=== PATIENT | female | born 1935 | race Caucasian/White ===

== ENCOUNTER 2016-03-25 14:08 | Emergency (ER) | payer OTHER ==
[~2016-03-25] VITALS: Ht 152.4 cm; Wt 58.5 kg
--- NOTE | 2016-03-25 15:32 | PHYS DOC ---
Past Medical History Past Medical History: Anemia, CVA, Other Additional Past Medical Histor: BLOOD TRANSFUSION,GI BLEED,SYNCOPE,IRON DEFICIENCY ANEMIA Past Surgical History: Hysterectomy, Tonsillectomy Alcohol Use: None Drug Use: None Adult General Chief Complaint Chief Complaint: SHORTNESS OF BREATH HPI HPI Patient is a 80 year old female who presents with cold symptoms. Patient reports that she has had a cold over the past 2 weeks; she reports chest congestion and cough. She does not feel short of breath or have any chest discomfort. No fever. Patient went to an urgent care and was instructed to come to the emergency department. She has been taking mucinex for her symptoms with partial relief. Review of Systems Review of Systems Constitutional: Denies fever or chills Eyes: Denies change in visual acuity or eye pain HENT: Denies nasal congestion or sore throat Respiratory: Cough, chest congestion. Denies shortness of breath Cardiovascular: Denies chest pain GI: Denies abdominal pain, nausea, vomiting, bloody stools or diarrhea : Denies dysuria or hematuria Musculoskeletal: Denies back pain or joint pain Integument: Denies rash or skin lesions Neurologic: Denies headache, focal weakness or sensory changes Current Medications Current Medications Current Medications Medications (Trade) Dose Ordered Sig/Mikayla Start Time Stop Time Status Last Admin Dose Admin Guaifenesin (Robitussin) 200 mg 1X ONCE 03/25/16 15:45 03/25/16 15:46 DC 03/25/16 16:09 200 MG Allergies Allergies Allergies Coded Allergies Type Severity Reaction Last Updated Verified No Known Drug Allergies 12/07/15 No Physical Exam Physical Exam Constitutional: Well developed, well nourished, no acute distress, non-toxic appearance HENT: Normocephalic, atraumatic, bilateral external ears normal Eyes: EOMI, conjunctiva normal, no discharge Neck: Normal range of motion, no stridor Cardiovascular: Heart rate normal, regular rhythm, no murmur Lungs & Thorax: Coarse breath sounds more pronounced on R Abdomen: Bowel sounds normal, soft, non-distended, no TTP Skin: Warm, dry, no erythema, no rash Extremities: No obvious deformity, no edema Neurologic: Alert and oriented X 3, no gross deficits noted Current Patient Data Vital Signs Vital Signs Date Time Temp Pulse Resp B/P Pulse Ox O2 Delivery O2 Flow Rate FiO2 03/25/16 18:35 72 20 143/78 93 Room Air 03/25/16 14:23 97.9 97.9 Lab Values Laboratory Tests Test 03/25/16 16:07 03/25/16 16:50 03/25/16 17:13 White Blood Count 5.0x10^3/uL (4.0-11.0) Red Blood Count 3.92x10^6/uL (3.50-5.40) Hemoglobin 11.5g/dL (12.0-15.5) L Hematocrit 34.7% (36.0-47.0) L Mean Corpuscular Volume 89fL (79-100) Mean Corpuscular Hemoglobin 29pg (25-35) Mean Corpuscular Hemoglobin Concent 33g/dL (31-37) Red Cell Distribution Width 14.4% (11.5-14.5) Platelet Count 242x10^3/uL (140-400) Neutrophils (%) (Auto) 47% (31-73) Lymphocytes (%) (Auto) 43% (24-48) Monocytes (%) (Auto) 6% (0-9) Eosinophils (%) (Auto) 3% (0-3) Basophils (%) (Auto) 1% (0-3) Neutrophils # (Auto) 2.3x10^3uL (1.8-7.7) Lymphocytes # (Auto) 2.2x10^3/uL (1.0-4.8) Monocytes # (Auto) 0.3x10^3/uL (0.0-1.1) Eosinophils # (Auto) 0.1x10^3/uL (0.0-0.7) Basophils # (Auto) 0.1x10^3/uL (0.0-0.2) Influenza Type A Antigen Negative (NEGATIVE) Influenza Type B Antigen Negative (NEGATIVE) Sodium Level 142mmol/L (136-145) Potassium Level 3.7mmol/L (3.5-5.1) Chloride Level 107mmol/L (98-107) Carbon Dioxide Level 25mmol/L (21-32) Anion Gap 10 (6-14) Blood Urea Nitrogen 14mg/dL (7-20) Creatinine 0.9mg/dL (0.6-1.0) Estimated GFR (Cockcroft-Gault) 60.4 Glucose Level 84mg/dL (70-99) Calcium Level 8.4mg/dL (8.5-10.1) L Troponin I Quantitative < 0.017ng/mL (0.000-0.055) Laboratory Tests 03/25/16 16:07 Laboratory Tests 03/25/16 17:13 EKG EKG EKG (my read): sinus rhythm, rate 68, borderline LAD, intervals wnl, no acute ischemic changes Radiology/Procedures Radiology/Procedures CXR (my read): Hiatal hernia. No significant change from prior. Course & Med Decision Making Course & Med Decision Making Pertinent Labs and Imaging studies reviewed. (See chart for details) Patient is 80 year old female who presents with cough and chest congestion. No chest discomfort or shortness of breath. Suspect viral URI. However will screen for more serious pathology with EKG, chest x-ray, labs. Dose of guaifenesin ordered for assistance with expectoration. EKG okay per my read. Chest x-ray similar to prior. Labs unremarkable. Troponin wnl; given duration of symptoms this would be sufficient to rule out LA, although patient's symptoms not indicative of that anyway. Discussed results with patient, who strongly insists upon going home. I discussed the importance of close follow up with PCP as well as strict return precautions. Patient agreeable with plan. Will discharge home with instructions for follow up and return precautions. Dragon Disclaimer Dragon Disclaimer This electronic medical record was generated, in whole or in part, using a voice recognition dictation system. Departure Departure Impression: Primary Impression: Upper respiratory infection Disposition: HOME, SELF-CARE Condition: STABLE Referrals: NO PCP (PCP) Patient Instructions: Upper Respiratory Infection, Adult Additional Instructions: Thank you for allowing us to provide care today in the Emergency Department. Take the provided medication as directed. Schedule a follow up appointment with your primary care doctor. Return promptly to the Emergency Department if you develop any new or concerning symptoms, such as chest discomfort or shortness of breath. Scripts Guaifenesin 200 Mg [id number] Mg PO Q4-6HRS PRN CONGESTION #20 Prov:TRUDI SHAW MD 03/25/16 TRUDI SHAW MD Mar 25, 2016 15:32
[2016-03-25] MEDS ORDERED: GUAIFENESIN 200 MG/10 ML LIQUID. PO ONE (15:45)
[2016-03-25 16:18] LABS: BASO # 0.1 x10^3/uL (0.0-0.2); BASO % 1 % (0-3); EOS % 3 % (0-3); HEMATOCRIT 34.7 % (36.0-47.0); HEMOGLOBIN 11.5 g/dL (12.0-15.5); LYMPH # 2.2 x10^3/uL (1.0-4.8); LYMPH % 43 % (24-48); MEAN CORPUSCULAR HEMOGLOBIN 29 pg (25-35); MEAN CORPUSCULAR HGB CONC 33 g/dL (31-37); MEAN CORPUSCULAR VOLUME 89 fL (79-100); MONO % 6 % (0-9); NEUT % 47 % (31-73); PLATELET COUNT 242 x10^3/uL (140-400); RED BLOOD COUNT 3.92 x10^6/uL (3.50-5.40); RED CELL DISTRIBUTION WIDTH 14.4 % (11.5-14.5)
[2016-03-25 17:17] LABS: OBC FLU VALID
[2016-03-25 17:32] LABS: CALCIUM 8.4 mg/dL (8.5-10.1); CREATININE 0.9 mg/dL (0.6-1.0); GFR 60.4; POTASSIUM 3.7 mmol/L (3.5-5.1)
[2016-03-25] MEDS ORDERED: GUAI200T3 PO (18:05)
[2016-03-25 18:35] VITALS: BP 143/78
--- NOTE | 2016-03-25 19:38 | EKG ---
[facility] [address] [place] [address] Test Date: 2016-03-25 Test Time: 15:57:14 Pat Name: ROHITH ELLIOTT Department: Room: Gender: F Joggle [employer] Operator: : [id number] Requested By: TRUDI SHAW Order Number: [id number] Reading MD: Measurements Intervals [place] Rate: 68 P: 8 [place]: 154 QRS: 8 QRSD: 76 T: 5 QT: 402 QTc: 432 Interpretive Statements SINUS RHYTHM RI6.01 Unconfirmed report Compared to ECG 12/06/2015 16:23:22 No significant changes
--- NOTE | 2016-03-26 09:36 | RAD ---
PA and lateral chest. History: Cough, cough x1 week PA and lateral views were taken of the chest. There is a large hiatus hernia. Lungs are free of infiltrates. Heart is normal in size. There is no effusion. Impression: 1. Large hiatus hernia. 2. No acute infiltrates.
== END 2016-03-25 18:45 | disposition home or self-care (01) ==
LOC: ER 14:08
DX: J06.9 Acute upper respiratory infection, unspecified (principal); Z86.73 Personal history of transient ischemic attack (TIA), and cerebral infarction without residual deficits; Z90.89 Acquired absence of other organs
CPT/HCPCS: 36415; 71020; 80048; 84484; 85027; 87804; 93005; 99285-25

== ENCOUNTER → 2018-04-15 | Outpatient (CLI) | payer OTHER ==
[~2018-04-15] MED LIST: GUAI200T3 PO
--- NOTE | 2018-04-15 16:16 | KCIC ---
ELBOW LEFT 3V, HUMERUS LEFT Clinical Indication: Left elbow and arm pain post injury x1 month. Comparison: None. Findings: No acute fracture of the humerus. Narrowing of the acromiohumeral distance suggests chronic rotator cuff tear. No glenohumeral dislocation. Soft tissues unremarkable. No acute fracture or dislocation of the elbow. No elbow joint effusion. No soft tissue swelling is identified. IMPRESSION: No acute bone abnormality. Electronically signed by: Jose Luis Blunt MD (04/15/2018 4:12 PM) [id number]
== END | disposition home or self-care (01) ==
LOC: KCIC 15:29
PROVIDERS: ATTEND Nurse Practitioner Family
DX: M25.522 Pain in left elbow (principal); M79.622 Pain in left upper arm
CPT/HCPCS: 73060; 73080

== ENCOUNTER → 2018-06-05 | Outpatient (CLI) | payer OTHER ==
--- NOTE | 2018-06-06 14:17 | SLEEP ---
DATE OF STUDY: 06/05/2018 HOME SLEEP STUDY OBJECTIVE: The patient is an 82-year-old female with a known nocturnal hypoxia, confusion, excessive somnolence. Height 61 inches, weight 115 pounds, body mass index 21.7. [place] sleep score 8. INTERPRETATION: The apnea-hypopnea index is 20.6 events per hour of sleep, 11.2 obstructive apneas per hour of sleep. The minimum oxygen saturation is 65%. A recording of 205 beats per minute was made for cardiac rate, otherwise the mean heart rate of 73.4. Snoring occurs 24 times during the night. IMPRESSION: Abnormal home polysomnogram showing oxygen desaturation and obstructive sleep apnea and hypopnea. RECOMMENDATIONS: The patient will follow up in my office to discuss options for further treatment. The use of a CPAP machine may be problematic given her dementia and indeed she did take off the nasal cannula during this home sleep study during the night. Thank you for letting us to help with the patient's care. DEMETRIUS WILSON MD DR: SMITHA/jesse JOB#: [id number] / [id number] DEVORA Pat DO
== END | disposition home or self-care (01) ==
LOC: RT 08:23
PROVIDERS: ATTEND Psychiatry & Neurology Neurology with Special Qualifications in Child Neurology
DX: G47.33 Obstructive sleep apnea (adult) (pediatric) (principal); R09.02 Hypoxemia
CPT/HCPCS: G0399

== ENCOUNTER → 2018-06-10 | Outpatient (CLI) | payer OTHER ==
--- NOTE | 2018-06-10 10:08 | KCIC ---
PQRS Compliance Statement: One or more of the following individualized dose reduction techniques were utilized for this examination: 1. Automated exposure control 2. Adjustment of the mA and/or kV according to patient size 3. Use of iterative reconstruction technique CT head without contrast 06/10/2018 10:00 AM INDICATION: Dementia, memory loss COMPARISON: None available TECHNIQUE: Multiple axial CT images of the head were obtained from skull base through the vertex without intravenous contrast. FINDINGS: Head: Ventricles, sulci and basal cisterns are within normal limits. . There is a remote lacunar infarct involving the right thalamus. Low-attenuation in the periventricular white matter is suggestive of chronic small vessel ischemic changes. There is no hydrocephalus. Dailey-white matter differentiation is normal. There is no acute intracranial hemorrhage. There is no mass, mass effect or midline shift. Posterior fossa is normal in appearance. Visualized portions of the orbits are normal with exception of right lens replacement. Paranasal sinuses are well aerated. Mastoid air cells are well aerated. Scalp and calvaria are normal. IMPRESSION: No acute intracranial hemorrhage. There is a remote lacunar infarct involving the right thalamus. Low-attenuation in the periventricular white matter is suggestive of chronic small vessel ischemic changes. Electronically signed by: Xiao Wynn MD (06/10/2018 10:04 AM) [facility]KC[facility]1
== END | disposition home or self-care (01) ==
LOC: KCIC CT 09:31
PROVIDERS: ATTEND Psychiatry & Neurology Neurology with Special Qualifications in Child Neurology
DX: F03.90 Unspecified dementia, unspecified severity, without behavioral disturbance, psychotic disturbance, mood disturbance, and anxiety (principal)
CPT/HCPCS: 70450

== ENCOUNTER → 2018-07-09 | Outpatient (CLI) | payer OTHER ==
--- NOTE | 2018-07-09 10:16 | CARD ---
MR#: [id number] Date of Study: 07/09/2018 Ordering Physician: DEMETRIUS WILSON, Referring Physician: DEMETRIUS WILSON, Tech: Mara Cardozo [facility] APPROVED REPORT EXAM: Two-dimensional and M-mode echocardiogram with Doppler and color Doppler. Other Information Quality : AverageHR: 60bpm Rhythm : Other INDICATION Chest Pain 2D DIMENSIONS RVDd2.8 (2.9-3.5cm)Left Atrium(2D)3.9 (1.6-4.0cm) IVSd1.1 (0.7-1.1cm)Aortic Root(2D)2.7 (2.0-3.7cm) LVDd3.4 (3.9-5.9cm)LVOT Diameter2.0 (1.8-2.4cm) PWd0.8 (0.7-1.1cm)LVDs2.4 (2.5-4.0cm) FS (%) 30.0 %SV27.4 ml LVEF(%)58.4 (>50%) Aortic Valve AoV Peak Javier.120.2cm/sAoV VTI22.5cm AO Peak GR.5.8mmHgLVOT Peak Javier.81.5cm/s AO Mean GR.3mmHgAVA (VMAX)2.23cm2 DONTA (VTI)2.20cm2 Mitral Valve MV E Jowkkrrt35.6cm/sMV E Peak Gr.6mmHg MV DECEL [id number] A Zmmhwqrh173.8cm/s MV E Mean Gr.2mmHgE/A Ratio0.6 MV A [id number] Pulmonary Valve PV Peak Nrjqnivi79.4cm/s Tricuspid Valve TR P. Rrtxivou065ws/sRAP KUIZIFVR0pxAg TR Peak Gr.82cvPkFWDI86nnVd Pulmonary Vein S1 Bubslrml06.5cm/sD2 Ueocmgbs04.8cm/s PVa jvztsnzk44kpmr LEFT VENTRICLE The left ventricle is normal size. Proximal septal thickening is noted. The left ventricular systolic function is normal and the ejection fraction is within normal range. The Ejection Fraction is 55-60% . There is normal LV segmental wall motion. Transmitral Doppler flow pattern is Grade I-abnormal rela xation pattern. RIGHT VENTRICLE The right ventricle is normal size. There is normal right ventricular wall thickness. The right ventr icular systolic function is normal. ATRIA The left atrium is mildly dilated. The right atrium is mildly dilated. The interatrial septum is inta ct with no evidence for an atrial septal defect or patent foramen ovale as noted on 2-D or Doppler im aging. AORTIC VALVE The aortic valve is trileaflet. The aortic valve is mildly calcified. Doppler and Color Flow revealed trace aortic regurgitation. There is no significant aortic valvular stenosis. There is no aortic delonte vular vegetation. MITRAL VALVE Mitral annular calcification is mild to moderate. There is no evidence of mitral valve prolapse. Ther e is no mitral valve stenosis. Doppler and Color-flow revealed mild mitral regurgitation. TRICUSPID VALVE The tricuspid valve is normal in structure and function. Doppler and Color Flow revealed mild tricusp id regurgitation. The PA pressure was estimated at 31 mmHg. There is no tricuspid valve prolapse or v egetation. There is no tricuspid valve stenosis. PULMONIC VALVE Doppler and Color Flow revealed trace pulmonic valvular regurgitation. There is no pulmonic valvular stenosis. GREAT VESSELS The aortic root is normal in size. The ascending aorta is normal in size. The IVC is normal in size a nd collapses >50% with inspiration. PERICARDIAL EFFUSION There is no evidence of significant pericardial effusion. Critical Notification Critical Value: No <Conclusion> The left ventricular systolic function is normal and the ejection fraction is within normal range. Th e Ejection Fraction is 55-60%. There is normal LV segmental wall motion. Doppler and Color-flow revealed mild mitral regurgitation. Signed by : Charly Belle, Electronically Approved : 07/09/2018 10:16:13
== END | disposition home or self-care (01) ==
LOC: ECHO 08:58
PROVIDERS: ATTEND Psychiatry & Neurology Neurology with Special Qualifications in Child Neurology
DX: I08.3 Combined rheumatic disorders of mitral, aortic and tricuspid valves (principal)
CPT/HCPCS: 93306

== ENCOUNTER 2020-07-10 17:01 | Emergency (ER) | payer MEDICARE ==
[~2020-07-10] VITALS: Ht 149.9 cm; Wt 40.0 kg
[~2020-07-10 17:01] MED LIST changes: +CYAN-25 PO; +DICL100G54 TP; +METO25TA4 PO; +MIRT15TA3 PO; +OLAN5TAB99 PO; +no home meds
--- NOTE | 2020-07-10 17:30 | PHYS DOC ---
Past Medical History Past Medical History: Anemia, CVA, Dementia, Other Additional Past Medical Histor: BLOOD TRANSFUSION,GI BLEED,SYNCOPE,IRON DEFICIENCY ANEMIA (LOLI WELLINGTON MD) Past Surgical History: Hysterectomy, Tonsillectomy (LOLI WELLINGTON MD) Smoking Status: Former Smoker Alcohol Use: None Drug Use: None (LOLI WELLINGTON MD) Adult General Chief Complaint Chief Complaint: MECHANICAL FALL HPI HPI Patient is a 84 year old female with a known past medical history of dementia currently care home now presenting emergency department with concern for new onset of fall. Nonspecific report coming from the care home but the patient is accompanied by the daughter states that she knows the patient fell and struck her head and at some point thinks that she had syncopized and had "her eyes rolling back into her head.". Uncertain whether or not these events occurred prior to the fall or after. Patient is unable to provide any significant history secondary to acute altered mental status (LOLI WELLINGTON MD) Review of Systems Review of Systems Constitutional: Denies fever or chills [] Eyes: Denies change in visual acuity, redness, or eye pain [] HENT: Denies nasal congestion or sore throat [] Respiratory: Denies cough or shortness of breath [] Cardiovascular: No additional information not addressed in HPI [] GI: Denies abdominal pain, nausea, vomiting, bloody stools or diarrhea [] : Denies dysuria or hematuria [] Musculoskeletal: Denies back pain or joint pain [] Integument: Denies rash or skin lesions [] Neurologic: Denies headache, focal weakness or sensory changes [] Endocrine: Denies polyuria or polydipsia [] All other systems were reviewed and found to be within normal limits, except as documented in this note. (LOLI WELLINGTON MD) Current Medications Current Medications Current Medications Medications (Trade) Dose Ordered Sig/Mikayla Start Time Stop Time Status Last Admin Dose Admin Info (CONTRAST GIVEN -- Rx MONITORING) 1 each PRN DAILY PRN 07/10/20 19:30 07/12/20 19:29 Iohexol (Omnipaque 350 Mg/ml) 100 ml 1X ONCE 07/10/20 19:30 07/10/20 19:31 DC 07/10/20 19:40 100 ML (KEVIN HERMAN DO) Allergies Allergies Allergies Coded Allergies Type Severity Reaction Last Updated Verified No Known Drug Allergies 12/07/15 No [facility] Physical Exam Physical Exam Constitutional: Well developed, well nourished, no acute distress, non-toxic appearance. [] HENT: Normocephalic, atraumatic, bilateral external ears normal, oropharynx moist, no oral exudates, nose normal. [] Eyes: PERRLA, EOMI, conjunctiva normal, no discharge. [] Neck: Normal range of motion, no tenderness, supple, no stridor. [] Cardiovascular:Heart rate regular rhythm, no murmur [] Lungs & Thorax: Bilateral breath sounds clear to auscultation [] Abdomen: Bowel sounds normal, soft, no tenderness, no masses, no pulsatile masses. [] Skin: Warm, dry, no erythema, no rash. [] Back: No tenderness, no CVA tenderness. [] Extremities: No tenderness, no cyanosis, no clubbing, ROM intact, no edema. [] Neurologic: normal motor function, normal sensory function, no focal deficits noted. [] Psychologic: Affect normal, judgement normal, mood normal. [] (LOLI WELLINGTON MD) Current Patient Data Vital Signs Vital Signs Date Time Temp Pulse Resp B/P (MAP) Pulse Ox O2 Delivery O2 Flow Rate FiO2 07/10/20 19:13 88 130/61 (84) 98 Nasal Cannula 2.0 07/10/20 17:13 98.1 12 98.1 ([facility] ) Lab Values Laboratory Tests Test 07/10/20 18:05 07/10/20 18:40 White Blood Count 6.9 x10^3/uL (4.0-11.0) Red Blood Count 4.24 x10^6/uL (3.50-5.40) Hemoglobin 13.2 g/dL (12.0-15.5) Hematocrit 39.0 % (36.0-47.0) Mean Corpuscular Volume 92 fL (79-100) Mean Corpuscular Hemoglobin 31 pg (25-35) Mean Corpuscular Hemoglobin Concent 34 g/dL (31-37) Red Cell Distribution Width 14.4 % (11.5-14.5) Platelet Count 149 x10^3/uL (140-400) Neutrophils (%) (Auto) 87 % (31-73) H Lymphocytes (%) (Auto) 8 % (24-48) L Monocytes (%) (Auto) 5 % (0-9) Eosinophils (%) (Auto) 0 % (0-3) Basophils (%) (Auto) 1 % (0-3) Neutrophils # (Auto) 6.0 x10^3/uL (1.8-7.7) Lymphocytes # (Auto) 0.5 x10^3/uL (1.0-4.8) L Monocytes # (Auto) 0.3 x10^3/uL (0.0-1.1) Eosinophils # (Auto) 0.0 x10^3/uL (0.0-0.7) Basophils # (Auto) 0.0 x10^3/uL (0.0-0.2) Segmented Neutrophils % 81 % (35-66) H Band Neutrophils % 1 % (0-9) Lymphocytes % 9 % (24-48) L Atypical Lymphocytes % (Manual) 3 % (0-0) H Monocytes % 5 % (0-10) Basophils % 1 % (0-3) Platelet Estimate Adequate (ADEQUATE) Large Platelets Few Ovalocytes Few Prothrombin Time 13.0 SEC (11.7-14.0) Prothrombin Time INR 1.0 (0.8-1.1) Activated Partial Thromboplast Time 27 SEC (24-38) Sodium Level 145 mmol/L (136-145) Potassium Level 4.2 mmol/L (3.5-5.1) Chloride Level 107 mmol/L (98-107) Carbon Dioxide Level 32 mmol/L (21-32) Anion Gap 6 (6-14) Blood Urea Nitrogen 18 mg/dL (7-20) Creatinine 0.8 mg/dL (0.6-1.0) Estimated GFR (Cockcroft-Gault) 68.5 BUN/Creatinine Ratio 23 (6-20) H Glucose Level 124 mg/dL (70-99) H Calcium Level 9.1 mg/dL (8.5-10.1) Magnesium Level 2.1 mg/dL (1.8-2.4) Total Bilirubin 0.5 mg/dL (0.2-1.0) Aspartate Amino Transferase (AST) 21 U/L (15-37) Alanine Aminotransferase (ALT) 22 U/L (14-59) Alkaline Phosphatase 85 U/L (46-116) Creatine Kinase 84 U/L (26-192) Troponin I Quantitative < 0.017 ng/mL (0.000-0.055) CS-Ipr-N-Type Natriuretic Peptide 836 pg/mL (0-449) H Total Protein 6.7 g/dL (6.4-8.2) Albumin 3.5 g/dL (3.4-5.0) Albumin/Globulin Ratio 1.1 (1.0-1.7) Ammonia < 10 mcmol/L (11-34) L Laboratory Tests 07/10/20 18:05 Laboratory Tests 07/10/20 18:05 ([facility],KEVIN Ram DO) Lab Values Laboratory Tests Test 07/10/20 18:05 07/10/20 18:40 White Blood Count 6.9 x10^3/uL (4.0-11.0) Red Blood Count 4.24 x10^6/uL (3.50-5.40) Hemoglobin 13.2 g/dL (12.0-15.5) Hematocrit 39.0 % (36.0-47.0) Mean Corpuscular Volume 92 fL (79-100) Mean Corpuscular Hemoglobin 31 pg (25-35) Mean Corpuscular Hemoglobin Concent 34 g/dL (31-37) Red Cell Distribution Width 14.4 % (11.5-14.5) Platelet Count 149 x10^3/uL (140-400) Neutrophils (%) (Auto) 87 % (31-73) H Lymphocytes (%) (Auto) 8 % (24-48) L Monocytes (%) (Auto) 5 % (0-9) Eosinophils (%) (Auto) 0 % (0-3) Basophils (%) (Auto) 1 % (0-3) Neutrophils # (Auto) 6.0 x10^3/uL (1.8-7.7) Lymphocytes # (Auto) 0.5 x10^3/uL (1.0-4.8) L Monocytes # (Auto) 0.3 x10^3/uL (0.0-1.1) Eosinophils # (Auto) 0.0 x10^3/uL (0.0-0.7) Basophils # (Auto) 0.0 x10^3/uL (0.0-0.2) Segmented Neutrophils % 81 % (35-66) H Band Neutrophils % 1 % (0-9) Lymphocytes % 9 % (24-48) L Atypical Lymphocytes % (Manual) 3 % (0-0) H Monocytes % 5 % (0-10) Basophils % 1 % (0-3) Platelet Estimate Adequate (ADEQUATE) Large Platelets Few Ovalocytes Few Prothrombin Time 13.0 SEC (11.7-14.0) Prothrombin Time INR 1.0 (0.8-1.1) Activated Partial Thromboplast Time 27 SEC (24-38) Sodium Level 145 mmol/L (136-145) Potassium Level 4.2 mmol/L (3.5-5.1) Chloride Level 107 mmol/L (98-107) Carbon Dioxide Level 32 mmol/L (21-32) Anion Gap 6 (6-14) Blood Urea Nitrogen 18 mg/dL (7-20) Creatinine 0.8 mg/dL (0.6-1.0) Estimated GFR (Cockcroft-Gault) 68.5 BUN/Creatinine Ratio 23 (6-20) H Glucose Level 124 mg/dL (70-99) H Calcium Level 9.1 mg/dL (8.5-10.1) Magnesium Level 2.1 mg/dL (1.8-2.4) Total Bilirubin 0.5 mg/dL (0.2-1.0) Aspartate Amino Transferase (AST) 21 U/L (15-37) Alanine Aminotransferase (ALT) 22 U/L (14-59) Alkaline Phosphatase 85 U/L (46-116) Creatine Kinase 84 U/L (26-192) Troponin I Quantitative < 0.017 ng/mL (0.000-0.055) RY-Tot-D-Type Natriuretic Peptide 836 pg/mL (0-449) H Total Protein 6.7 g/dL (6.4-8.2) Albumin 3.5 g/dL (3.4-5.0) Albumin/Globulin Ratio 1.1 (1.0-1.7) Ammonia < 10 mcmol/L (11-34) L Laboratory Tests 07/10/20 18:05 Laboratory Tests 07/10/20 18:05 (LOLI WELLINGTON MD) EKG EKG [] (LOLI WELLINGTON MD) Radiology/Procedures Radiology/Procedures [] (LOLI WELLINGTON MD) Radiology/Procedures IMAGING REPORT Signed PATIENT: ROHITH ELLIOTT ACCOUNT: [id number] : 1935 LOCATION: ER AGE: 84 SEX: F EXAM STATUS: REG ER ORD. PHYSICIAN: KEVIN SAMUEL DO REASON: loc? syncope? PT AMS, DEMENTIA, DIFFICULTY FOLLOWING DIRECT & HOLDIN PROCEDURE: CT HEAD WO CONTRAST CT HEAD/BRAIN WO Clinical indications: Loss of consciousness and syncope altered mental status, DEMENTIA, DIFFICULTY FOLLOWING DIRECTIONS AND HOLDING STILL COMPARISON: March 21, 2019. Technique: Noncontrast axial cross sectional scanning of the head was performed. PQRS compliance Statement One or more of the following individualized dose reduction techniques were utilized for this study: 1. Automated exposure control 2. Adjustment of the mA and/or kV according to patient size 3. Use of iterative reconstruction technique Findings: No acute intracranial hemorrhage or midline shift or mass-effect or hydrocephalus or extra-axial fluid collection is seen. Mild hypodensity is seen consistent with chronic small vessel ischemic disease. Old infarct of the right thalamus is seen. Old lacunar infarct of the left lenticular nucleus is seen. No new focal hypodense area or sulci effacement is seen to indicate an acute infarct or edema radiographically. No skull fracture or pneumocephalus is seen. No opacification of the mastoid sinuses or the middle ear cavities or the paranasal sinuses is seen. The maxillary sinuses are not completely seen in this study. IMPRESSION: No acute intracranial abnormality is seen. Chronic small vessel ischemic disease. Electronically signed by: Hong Cuenca MD (07/10/2020 8:39 PM) [id number] DICTATED and SIGNED BY: HONG CUENCA MD DATE: 07/10/20 [id number] 0 IMAGING REPORT Signed PATIENT: ROHITH ELLIOTT ACCOUNT: [id number] : 1935 LOCATION: ER AGE: 84 SEX: F EXAM STATUS: REG ER ORD. PHYSICIAN: KEVIN SAMUEL DO REASON: mediastinal mass, on oxygen, r/o pe, OMNI 350 100 ML IV PROCEDURE: CT ANGIOGRAPHY CHEST PQRS Compliance Statement: One or more of the following individualized dose reduction techniques were utilized for this examination: 1. Automated exposure control 2. Adjustment of the mA and/or kV according to patient size 3. Use of iterative reconstruction technique CT CHEST WITH CONTRAST, PULMONARY ANGIOGRAM History: Reason: mediastinal mass, on oxygen, syncope, loss of consciousness. PT AMS, DEMENTIA, DIFFICULTY FOLLOWING DIRECT AND HOLDING STILL / History: Comparison: None. Technique: Helical CT of the chest was performed after the administration of 100 cc of Omnipaque 350 intravenous contrast according to PE protocol. Axial and coronal reconstructions were obtained. 3-D MIP images were constructed to better evaluate the pulmonary arteries. Findings: Image quality is moderately degraded due to motion artifact. Limited evaluation of the lung apices. Pulmonary arteries are adequately opacified. There is no evidence of pulmonary embolism. There is no thoracic aortic dissection. Great vessels upper limits of normal in caliber. There is a large hiatal hernia. The stomach is moderately distended with fluid. There is fluid distending the thoracic esophagus. Coronary artery disease. The cardiac size is upper limits of normal. No pleural Effusion is seen. There are consolidations in the medial lungs, worse on the right probably due to compressive atelectasis from the hiatal hernia.The visualized central airways are patent. No pleural abnormality is identified. Cholecystectomy. Degenerative spondylosis of the thoracic spine. IMPRESSION: 1. There is no pulmonary embolus. 2. There is large hiatal hernia. The stomach is at least moderately distended with fluid. Fluid distends the thoracic esophagus. The distal stomach is incompletely imaged. Cannot exclude gastric outlet obstruction. Electronically signed by: Jose Luis Blunt MD (07/10/2020 8:46 PM) [facility] DICTATED and SIGNED BY: JOSE LUIS BLUNT MD DATE: 07/10/[id number] 0 IMAGING REPORT Signed PATIENT: ROHITH ELLIOTT ACCOUNT: [id number] : 1935 LOCATION: ER AGE: 84 SEX: F EXAM STATUS: REG ER ORD. PHYSICIAN: LOLI WELLINGTON MD REASON: ALTERED MENTAL STATUS PROCEDURE: PORTABLE CHEST 1V XR CHEST 1V CLINICAL INDICATIONS: Reason: ALTERED MENTAL STATUS COMPARISON: March 21, 2019. Findings: There is a new finding of a mass lesion splaying the right and left main bronchi. There is associated compressive atelectasis of the right lung base. No pleural effusion or pneumothorax is seen. Heart size is grossly unchanged from the prior study. IMPRESSION: New mediastinal mass. Electronically signed by: Hong Cuenca MD (07/10/2020 6:16 PM) [id number] DICTATED and SIGNED BY: HONG CUENCA MD DATE: 07/10/20 [id number] 0 ([facility]) Course & Med Decision Making Course & Med Decision Making Pertinent Labs and Imaging studies reviewed. (See chart for details) 84-year-old female presented the emergency department with altered mental status and fall with head injury. No significant outward signs of trauma but given the patient's age change in mental status obtain CT scan to make sure there is no other significant underlying etiology. (LOLI WELLINGTON MD) Course & Med Decision Making I received signout from Dr. Wellington at shift change. Patient is a 84-year-old female with history of dementia and anemia, not on any anticoagulants. Daughter at [facility] called her sister today and informed her that patient fell out of her wheelchair today. Patient is not ambulatory and requires one-to-one fall precautions. Patient is currently at her baseline mental status with no reproducible abdominal pain, no abdominal distention, no nausea or vomiting. Patient with no signs of head trauma, no midline reproducible neck pain -moving neck w/o any distress. X-ray consistent with mediastinal mass, CT imaging concerning for large hiatal hernia, cannot exclude gastric outlet obstruction -this diagnosis is not consistent with patient's physical exam and history. Patient is a DNR CODE STATUS. Will admit for syncope evaluation for further medical management. Patient stable at time of admission and her daughter agrees with this plan. I have spoken with the patient and/or caregivers. I have explained the patient's condition, diagnosis and treatment plan based on the information available to me at this time. I have answered the patient's and/or caregivers questions and answered any concerns. The patient and/or caregivers have as good an understanding of the patient's diagnosis, condition and treatment plan as can be expected at this point. The patient has been stabilized within the capability of the emergency department. The patient will be transported for further care and management or will be moved to an observation or inpatient service. I have communicated with the staff or medical practitioner taking over this patient's care. (KEVIN SAMUEL DO) Dragon Disclaimer Dragon Disclaimer This electronic medical record was generated, in whole or in part, using a voice recognition dictation system. (LOLI WELLINGTON MD) Departure Departure Impression: Primary Impression: Syncope Additional Impression: Hiatal hernia Disposition: ADMITTED INPATIENT Admitting Physician: JIAN (Dr. Sarah) (KEVIN SAMUEL DO) Referrals: MARISELA BEGUM APRN (PCP) Problem Qualifiers LOLI WELLINGTON MD Jul 10, 2020 17:30 KEVIN SAMUEL DO Jul 10, 2020 21:34
--- NOTE | 2020-07-10 17:31 | EKG ---
[facility] [address] [place] [address] Test Date: 2020-07-10 Test Time: 17:13:16 Pat Name: ROHITH ELLIOTT Department: Room: Gender: F Dictating Machine Transcriber: : 1935 Requested By: LOLI STRONG Order Number: [id number] Reading MD: Charly Belle MD Measurements Intervals [place] Rate: 86 P: -3 NC: 164 QRS: 0 QRSD: 80 T: -2 QT: 382 QTc: 460 Interpretive Statements SINUS RHYTHM Electronically Signed On 07-11-2020 1:31:05 CDT by Charly Belle MD
[2020-07-10 18:17] LABS: BASO % 1 % (0-3); EOS % 0 % (0-3); HEMOGLOBIN 13.2 g/dL (12.0-15.5); LYMPH # 0.5 x10^3/uL (1.0-4.8); LYMPH % 8 % (24-48); MEAN CORPUSCULAR HEMOGLOBIN 31 pg (25-35); MEAN CORPUSCULAR HGB CONC 34 g/dL (31-37); MEAN CORPUSCULAR VOLUME 92 fL (79-100); MONO # 0.3 x10^3/uL (0.0-1.1); MONO % 5 % (0-9); NEUT % 87 % (31-73); PLATELET COUNT 149 x10^3/uL (140-400); RED BLOOD COUNT 4.24 x10^6/uL (3.50-5.40); RED CELL DISTRIBUTION WIDTH 14.4 % (11.5-14.5); WHITE BLOOD COUNT 6.9 x10^3/uL (4.0-11.0)
--- NOTE | 2020-07-10 18:19 | RAD ---
XR CHEST 1V CLINICAL INDICATIONS: Reason: ALTERED MENTAL STATUS COMPARISON: March 21, 2019. Findings: There is a new finding of a mass lesion splaying the right and left main bronchi. There is associated compressive atelectasis of the right lung base. No pleural effusion or pneumothorax is see n. Heart size is grossly unchanged from the prior study. IMPRESSION: New mediastinal mass. Electronically signed by: Naveen Cuenca MD (07/10/2020 6:16 PM) [id number]
[2020-07-10 18:30] LABS: CALCIUM 9.1 mg/dL (8.5-10.1); CREATININE 0.8 mg/dL (0.6-1.0); GFR 68.5; POTASSIUM 4.2 mmol/L (3.5-5.1)
[2020-07-10 18:35] LABS: ALBUMIN 3.5 g/dL (3.4-5.0); ALBUMIN/GLOBULIN RATIO 1.1 (1.0-1.7); MAGNESIUM 2.1 mg/dL (1.8-2.4); TOTAL BILIRUBIN 0.5 mg/dL (0.2-1.0); TOTAL PROTEIN 6.7 g/dL (6.4-8.2)
[2020-07-10] MEDS ORDERED: CONTRAST GIVEN. MC PRN (19:30)
[2020-07-10] MEDS: IOHEXOL 350 MG/ML 100 ML VIAL. IV ONE (19:40)
[2020-07-10 19:42] LABS: % ATYL 3 % (0-0); % BANDS 1 % (0-9); % BASOS 1 % (0-3); % LYMPHS 9 % (24-48); % MONOS 5 % (0-10); % SEGS 81 % (35-66)
[2020-07-10 19:46] LABS: OVALOCYTES FEW
[2020-07-10 19:48] LABS: PLT ESTIMATE ADEQUATE (ADEQUATE)
--- NOTE | 2020-07-10 20:42 | RAD ---
CT HEAD/BRAIN WO Clinical indications: Loss of consciousness and syncope altered mental status, DEMENTIA, DIFFICULTY F OLLOWING DIRECTIONS AND HOLDING STILL COMPARISON: March 21, 2019. Technique: Noncontrast axial cross sectional scanning of the head was performed. PQRS compliance Statement One or more of the following individualized dose reduction techniques were utilized for this study: 1. Automated exposure control 2. Adjustment of the mA and/or kV according to patient size 3. Use of iterative reconstruction technique Findings: No acute intracranial hemorrhage or midline shift or mass-effect or hydrocephalus or extra- axial fluid collection is seen. Mild hypodensity is seen consistent with chronic small vessel ischemi c disease. Old infarct of the right thalamus is seen. Old lacunar infarct of the left lenticular nucl eus is seen. No new focal hypodense area or sulci effacement is seen to indicate an acute infarct or edema radiographically. No skull fracture or pneumocephalus is seen. No opacification of the mastoid sinuses or the middle ear cavities or the paranasal sinuses is seen. The maxillary sinuses are not c ompletely seen in this study. IMPRESSION: No acute intracranial abnormality is seen. Chronic small vessel ischemic disease. Electronically signed by: Naveen Cuenca MD (07/10/2020 8:39 PM) [id number]
--- NOTE | 2020-07-10 20:49 | RAD ---
PQRS Compliance Statement: One or more of the following individualized dose reduction techniques were utilized for this examinat ion: 1. Automated exposure control 2. Adjustment of the mA and/or kV according to patient size 3. Use of iterative reconstruction technique CT CHEST WITH CONTRAST, PULMONARY ANGIOGRAM History: Reason: mediastinal mass, on oxygen, syncope, loss of consciousness. PT AMS, DEMENTIA, DIFFI CULTY FOLLOWING DIRECT AND HOLDING STILL / History: Comparison: None. Technique: Helical CT of the chest was performed after the administration of 100 cc of Omnipaque 350 intravenous contrast according to PE protocol. Axial and coronal reconstructions were obtained. 3- D MIP images were constructed to better evaluate the pulmonary arteries. Findings: Image quality is moderately degraded due to motion artifact. Limited evaluation of the lung apices. Pulmonary arteries are adequately opacified. There is no evidence of pulmonary embolism. There is no thoracic aortic dissection. Great vessels upper limits of normal in caliber. There is a l arge hiatal hernia. The stomach is moderately distended with fluid. There is fluid distending the tho racic esophagus. Coronary artery disease. The cardiac size is upper limits of normal. No pleural Effusion is seen. There are consolidations in the medial lungs, worse on the right probabl y due to compressive atelectasis from the hiatal hernia.The visualized central airways are patent. No pleural abnormality is identified. Cholecystectomy. Degenerative spondylosis of the thoracic spine. IMPRESSION: 1. There is no pulmonary embolus. 2. There is large hiatal hernia. The stomach is at least moderately distended with fluid. Fluid dist ends the thoracic esophagus. The distal stomach is incompletely imaged. Cannot exclude gastric outlet obstruction. Electronically signed by: Jose Luis Blunt MD (07/10/2020 8:46 PM) [facility]
[2020-07-10] MEDS: ONDANSETRON PF 4 MG/2 ML VIAL. IVP ONE (22:59)
[2020-07-10 23:08] VITALS: BP 83/46
--- NOTE | 2020-07-11 00:24 | RAD ---
Single view chest dated 07/10/2020. Comparison made to study dated same day. CLINICAL INDICATION: Aspiration FINDINGS: Heart size is mildly enlarged. There is a large hiatal hernia, unchanged. There is increasing patchy airspace disease at the perihilar regions, right greater than left. Is blunting the right costophreni c sulcus. No pneumothorax. IMPRESSION: 1. Increasing bilateral airspace disease, suspicious for pneumonia, possibly aspiration. 2. Large hiatal hernia. Electronically signed by: Brendan Peterson MD (07/11/2020 12:22 AM) [facility]
[2020-07-11] MEDS ORDERED: ATROPINE 1 MG/10 ML DISP.SYRINGE. ONE (12:00)
== END 2020-07-11 23:38 ==
LOC: ER 17:01 → ED HOLD 22:38 → UNDOADMIN 23:12 → ED HOLD 23:38 → ER 07-11 23:38 → UNDODISIN 07-11 23:38
DX: R55 Syncope and collapse (principal); K44.9 Diaphragmatic hernia without obstruction or gangrene; F03.90 Unspecified dementia, unspecified severity, without behavioral disturbance, psychotic disturbance, mood disturbance, and anxiety; Z86.73 Personal history of transient ischemic attack (TIA), and cerebral infarction without residual deficits; Z87.891 Personal history of nicotine dependence; Z90.710 Acquired absence of both cervix and uterus; Z90.49 Acquired absence of other specified parts of digestive tract; W18.39XA Other fall on same level, initial encounter; Y93.89 Activity, other specified; Y92.89 Other specified places as the place of occurrence of the external cause; Y99.8 Other external cause status
CPT/HCPCS: 36415; 70450; 71045; 71275; 80053; 82140; 82550; 83735; 83880; 84484; 85007; 85025; 85610; 85730; 93005; 96374; 99285; J0461; J2405; Q9967